=== PATIENT | female | born 1990 ===

== ENCOUNTER 2017-06-10 12:18 | Emergency (ER) | payer SELFPAY ==
[2017-06-10 12:23] VITALS: RESP 18; O2SAT 100
[2017-06-10 12:57] LABS: BASO # 0.1 K/uL (0.0-0.2); EOS # 0.2 K/uL (0.0-0.7); EOS % 2.4 % (0.0-4.0); HEMOGLOBIN 13.2 g/dL (11.0-16.0); LYMPH # 2.8 K/uL (1.0-4.3); MEAN CELL VOLUME 91.6 fL (81.0-99.0); MEAN CORPUSCULAR HEMOGLOBIN 32.4 pg (27.0-31.0); MEAN CORPUSCULAR HGB CONC 35.3 g/dL (33.0-37.0); MEAN PLATELET VOLUME 8.2 fL (7.2-11.7); MONO # 0.4 K/uL (0.0-0.8); MONO % 5.1 % (0.0-10.0); NEUT # 3.6 K/uL (1.8-7.0); NEUT % 51.5 % (50.0-75.0); RBC 4.09 Mil/uL (3.80-5.20); RED CELL DISTRIBUTION WIDTH 13.3 % (11.5-14.5); WHITE BLOOD COUNT 6.9 K/uL (4.8-10.8)
--- NOTE | 2017-06-10 13:12 | C.PDOC ---
History Of Present Illness 27-year-old female, presents to the emergency department with complaints of right lower quadrant abdominal pain since this morning that is constant, and non -radiating. Denies nausea/vomiting, diarrhea, dysuria, vaginal bleeding/ discharge. Admits to several prior episodes of this pain, but doesn't know why. Time Seen by Provider: 06/10/17 12:24 Chief Complaint (Nursing): Abdominal Pain History Per: Patient History/Exam Limitations: no limitations Onset/Duration Of Symptoms: Hrs Current Symptoms Are (Timing): Still Present Past Medical History Reviewed: Historical Data, Nursing Documentation, Vital Signs Vital Signs: Last Vital Signs Temp 98.7 F 06/10/17 12:21 Pulse 73 06/10/17 12:21 Resp 18 06/10/17 12:21 BP 111/77 06/10/17 12:21 Pulse Ox 100 06/10/17 16:49 Family History: States: No Known Family Hx - Social History Hx Alcohol Use: No Hx Substance Use: No - Immunization History Hx Tetanus Toxoid Vaccination: No Hx Influenza Vaccination: No Hx Pneumococcal Vaccination: No Review Of Systems Except As Marked, All Systems Reviewed And Found Negative. Constitutional: Negative for: Fever, Chills Gastrointestinal: Positive for: Abdominal Pain. Negative for: Nausea, Vomiting , Diarrhea Genitourinary: Negative for: Dysuria, Hematuria, Vaginal Discharge, Vaginal Bleeding Musculoskeletal: Negative for: Back Pain Physical Exam - Physical Exam Appears: Well, Non-toxic, No Acute Distress Skin: Normal Color, Warm, Dry, No Rash Head: Normacephalic Eye(s): bilateral: PERRL Nose: Normal Oral Mucosa: Moist Lips: Normal Appearing Neck: Normal ROM Chest: Symmetrical Cardiovascular: Rhythm Regular, No Murmur Respiratory: Normal Breath Sounds, No Accessory Muscle Use Gastrointestinal/Abdominal: Soft, Tenderness (RLQ and periumbilical), No Guarding, No Rebound, Other ((-)murphys sign) Back: No CVA Tenderness Pelvic: Normal External Exam, Normal Speculum Exam, Normal Bimanual Exam, No Vaginal Bleeding, No Vaginal Discharge, No Cervical Motion Tenderness, No Adnexal Tenderness Extremity: Normal ROM, No Deformity, No Swelling Neurological/Psych: Oriented x3, Normal Speech ED Course And Treatment - Laboratory Results Result Diagrams: 06/10/17 12:52 06/10/17 12:52 O2 Sat by Pulse Oximetry: 100 (ra) Pulse Ox Interpretation: Normal Progress Note: Blood work, UA, Upreg, CT scan abd/pelvis ordered and reviewed. Patient continued to have right sided pain, transvaginal US ordered. Reevaluation Time: 18:10 Reassessment Condition: Improved Disposition Counseled Patient/Family Regarding: Studies Performed, Diagnosis, Need For Followup, Rx Given - Disposition Referrals: Christopher Francisco MD [Staff Provider] - [facility] [Outside] Disposition: HOME/ ROUTINE Disposition Time: 18:10 Condition: STABLE Additional Instructions: FOLLOW UP WITH FACILITY MECHANIC WITHIN 1 WEEK USE PROTONIX EVERY DAY AVOID SPICY, ACIDIC FOODS RETURN TO EMERGENCY ROOM IF SYMPTOMS WORSEN SEGUIMIENTO CON GASTROENTERLOGO DENTRO DE 1 SEMANA UTILIZA PROTONIX CADA DA EVITE ALIMENTOS CIDOS Y PICANTES REGRESE AL DORA DE EMERGENCIA SI LOS SNTOMAS EMPEORAN Prescriptions: Pantoprazole [Protonix EC Tab] 20 mg PO DAILY #30 ect Instructions: Acute Abdomen (Belly Pain), Adult (DC) Forms: [facility] (Slovenian), General Discharge Instructions Print Language: UPPER SORBIAN - Clinical Impression Clinical Impression: Abdominal pain, Nausea - Scribe Statement The provider has reviewed the documentation as recorded by the Scribe (Obed Harkins) All medical record entries made by the Scribe were at my direction and personally dictated by me. I have reviewed the chart and agree that the record accurately reflects my personal performance of the history, physical exam, medical decision making, and the department course for this patient. I have also personally directed, reviewed, and agree with the discharge instructions and disposition.
[2017-06-10 13:17] LABS: SQUAMOUS EPITHIAL < 1 /hpf (0-5); URINE BILIRUBIN NEGATIVE (NEGATIVE); URINE BLOOD 1+ (NEGATIVE); URINE CLARITY Clear (Clear); URINE COLOR Colorless (YELLOW); URINE GLUCOSE (UA) NORMAL (Normal); URINE LEUKOCYTE ESTERASE NEG Leu/uL (Negative); URINE PROTEIN NEGATIVE (NEGATIVE); URINE UROBILINOGEN NORMAL mg/dL (0.2-1.0)
[2017-06-10 13:19] LABS: CALCIUM 9.3 mg/dl (8.6-10.4); GFR AFRICAN-AMERICAN > 60; GFR NON-AFRICAN AMERICAN > 60
[2017-06-10 13:21] LABS: ALB/GLOB RATIO 1.1 (1.0-2.1); ALBUMIN 4.8 g/dL (3.5-5.0); ALT/SGPT 33 U/L (9-52); AST/SGOT 42 U/L (14-36); BLOOD UREA NITROGEN 15 mg/dL (7-17)
[2017-06-10 13:40] LABS: LIPASE 123 U/L (23-300)
[2017-06-10] MEDS ORDERED: Sodium Chloride 0.9% 1,000 ML ONE (14:10)
[2017-06-10] MEDS ORDERED: Morphine 4 MG/ML VIAL ONE (14:10)
[2017-06-10] MEDS: Sodium Chloride 0.9% 1,000 ML IV ONE (14:12)
--- NOTE | 2017-06-10 15:23 | CT ---
PROCEDURE: CT Abdomen and Pelvis without intravenous contrast HISTORY: RIGHT ABDOMINAL PAIN, R/O KIDNEY STONE COMPARISON: CT scan of the abdomen and pelvis dated 04/30/2016. TECHNIQUE: Contiguous images were obtained from the domes of the diaphragms to the upper thighs without the administration of intravenous contrast. Oral contrast was not administered. Radiation dose: Total exam DLP = 766.6 mGy-cm. This CT exam was performed using one or more of the following dose reduction techniques: Automated exposure control, adjustment of the mA and/or kV according to patient size, and/or use of iterative reconstruction technique. FINDINGS: LOWER THORAX: Unremarkable. LIVER: Unremarkable. No gross lesion or ductal dilatation. GALLBLADDER AND BILE DUCTS: Unremarkable. PANCREAS: Unremarkable. No gross lesion or ductal dilatation. SPLEEN: Unremarkable. ADRENALS: Unremarkable. No mass. KIDNEYS AND URETERS: Unremarkable. No hydronephrosis. No solid mass. VASCULATURE: Unremarkable. No aortic aneurysm. BOWEL: Unremarkable. No obstruction. No gross mural thickening. APPENDIX: Unremarkable. Normal appendix. PERITONEUM: Unremarkable. No free fluid. No free air. LYMPH NODES: Unremarkable. No enlarged lymph nodes. BLADDER: Unremarkable. REPRODUCTIVE: Unremarkable. BONES: Small probable hemangioma in T12. No acute fracture. OTHER FINDINGS: None. IMPRESSION: No urolithiasis or evidence of recently passed genitourinary calculus. Normal appendix. No acute abdominal pelvic pathology.
--- NOTE | 2017-06-10 17:36 | US ---
HISTORY: right sided pelvic pain COMPARISON: None available. TECHNIQUE: Transabdominal and transvaginal pelvic ultrasound was performed. FINDINGS: UTERUS: Measures 7.7 x 4.2 x 4.1 cm. Retroverted, normal in size and appearance. No fibroid or other mass lesion seen. ENDOMETRIUM: Measures 5.3 mm in diameter. Normal in appearance. CERVIX: No cervical abnormality identified. RIGHT OVARY: Measures 2.6 x 1.7 x 2.9 cm. No solid mass. Normal flow. LEFT OVARY: Measures 2.8 x 1.5 x 2.3 cm. No solid mass. Normal flow. FREE FLUID: No significant free fluid noted. OTHER FINDINGS: None. IMPRESSION: Normal pelvic ultrasound.
[2017-06-10 18:03] VITALS: BP 121/75; PULSE 66; TEMP 98.6
== END 2017-06-10 18:15 | disposition home or self-care (01) ==
LOC: C.ER 12:18
DX: R10.9 Unspecified abdominal pain (principal); R11.0 Nausea
CPT/HCPCS: 74176; 76830; 76856; 80053; 81001; 83690; 84703; 85025; 87086; 96361; 96374; 96375; 99284; J1885; J2270; J7040

== ENCOUNTER 2017-09-05 15:02 | Emergency (ER) | payer SELFPAY ==
[2017-09-05 15:11] VITALS: TEMP 98; O2SAT 100
[2017-09-05] MEDS ORDERED: Sodium Chloride 0.9% 1,000 ML IV STA (15:22)
[2017-09-05 15:50] LABS: BASO # 0.1 K/uL (0.0-0.2); BASO % 0.7 % (0.0-2.0); EOS # 0.1 K/uL (0.0-0.7); EOS % 1.6 % (0.0-4.0); HEMOGLOBIN 12.3 g/dL (11.0-16.0); LYMPH # 2.6 K/uL (1.0-4.3); MEAN CELL VOLUME 91.3 fL (81.0-99.0); MEAN CORPUSCULAR HEMOGLOBIN 31.6 pg (27.0-31.0); MEAN CORPUSCULAR HGB CONC 34.6 g/dL (33.0-37.0); MEAN PLATELET VOLUME 7.7 fL (7.2-11.7); MONO # 0.5 K/uL (0.0-0.8); MONO % 6.6 % (0.0-10.0); NEUT # 4.5 K/uL (1.8-7.0); NEUT % 58.1 % (50.0-75.0); RBC 3.89 Mil/uL (3.80-5.20); RED CELL DISTRIBUTION WIDTH 12.9 % (11.5-14.5); WHITE BLOOD COUNT 7.8 K/uL (4.8-10.8)
[2017-09-05 16:02] LABS: ALB/GLOB RATIO 1.1 (1.0-2.1); ALT/SGPT 12 U/L (9-52); AST/SGOT 20 U/L (14-36); BLOOD UREA NITROGEN 6 mg/dL (7-17); GFR AFRICAN-AMERICAN > 60; GFR NON-AFRICAN AMERICAN > 60
--- NOTE | 2017-09-05 16:25 | C.PDOC ---
History Of Present Illness 27 y/o female, currently 2 months , presents to the ED for 1 day of vaginal bleeding. Patient was seen at the clinic yesterday, and had blood work and an ultrasound not showing a clear IUP. Patient then noticed vaginal spotting today and came in for further evaluation. Otherwise denies any abdominal pain, nausea, vomiting, fever, or other complaints. Time Seen by Provider: 09/05/17 15:18 Chief Complaint (Nursing): Abdominal Pain History Per: Patient History/Exam Limitations: no limitations Onset/Duration Of Symptoms: Hrs Current Symptoms Are (Timing): Still Present Past Medical History Reviewed: Historical Data, Nursing Documentation, Vital Signs Vital Signs: Last Vital Signs Temp 98.0 F 09/05/17 15:07 Pulse 91 H 09/05/17 17:04 Resp 18 09/05/17 17:04 BP 111/71 09/05/17 17:04 Pulse Ox 100 09/05/17 17:39 - Medical History PMH: No Chronic Diseases Surgical History: No Surg Hx Family History: States: Unknown Family Hx - Social History Hx Alcohol Use: No Hx Substance Use: No - Immunization History Hx Tetanus Toxoid Vaccination: Yes Hx Influenza Vaccination: No Hx Pneumococcal Vaccination: No Review Of Systems Except As Marked, All Systems Reviewed And Found Negative. Constitutional: Negative for: Fever, Chills Gastrointestinal: Negative for: Nausea, Vomiting, Abdominal Pain Genitourinary: Positive for: Vaginal Bleeding Physical Exam - Physical Exam Appears: Non-toxic, No Acute Distress Skin: Normal Color, Warm, Dry Head: Atraumatic, Normacephalic Eye(s): bilateral: Normal Inspection, PERRL, EOMI Nose: Normal Oral Mucosa: Moist Neck: Normal ROM, Supple Cardiovascular: Rhythm Regular, No Murmur Respiratory: Normal Breath Sounds, No Rales, No Rhonchi, No Wheezing Gastrointestinal/Abdominal: Soft, No Tenderness, No Guarding, No Rebound Extremity: Bilateral: Atraumatic, Normal Color And Temperature, Normal ROM Pulses: Left Dorsalis Pedis: Normal, Right Dorsalis Pedis: Normal Neurological/Psych: Oriented x3, Normal Speech, Normal Motor, Normal Sensation, Other (No focal deficits) ED Course And Treatment - Laboratory Results Result Diagrams: 09/05/17 15:40 09/05/17 15:40 O2 Sat by Pulse Oximetry: 100 (RA) Pulse Ox Interpretation: Normal - CT Scan/US Pelvic US Other Rad Studies (CT/US): Read By Radiologist, Radiology Report Reviewed CT/US Interpretation: Accession No. : [id number]. Patient Name / ID : LUCIANA ISAACS / [id number]. Exam Date : 09/05/2017 15:44:50 ( Approved ) . Study Comment : Sex / Age : F / [id number]. Creator : Jan Singh MD. Dictator : Jan Singh MD. Baker Test : Intellectual Property Counsel : Jan Singh MD. Approver2 : Report Date : 09/05/2017 16:46:04. My Comment : . Pelvic ultrasound. History: Vaginal bleeding. Comparison: Ultrasound dated 04/2017. Technique: Real-time sonography was performed through the pelvis utilizing transvaginal technique. Findings: Uterus: 9.3 x 6.3 x 6.0 centimeters. Anteverted. Cervix measures 3.5 centimeters. Intrauterine gestational sac measuring 1.9 centimeters corresponding to gestational age of 6 weeks and 2 days. Yolk sac measures 3.5 millimeters. [place]-rump length measures 3.2 millimeters corresponding to a gestational age of 6 weeks and 0 days. No heart rate identified to. No free fluid the pelvic cul-de-sac. Right ovary: 3.7 x 2.5 x 2.7 centimeters. Normal flow. Left ovary: 3.2 x 1.1 x 2.8 centimeters. Normal flow. Impression: Intrauterine corresponding to a gestational age of approximately 6 weeks and 0 days by crown- rump length of 3.2 millimeters. No heart rate identified. This may represent an early intrauterine ; however, nonviable cannot entirely be excluded. Continued interval follow-up is recommended if clinically indicated. Limited 1st trimester ultrasound for viability purposes only. Continued interval followup with serial ultrasound, serial HCG levels, and gynecological consultation would be helpful if clinically indicated. Progress Note: Repeat blood work and OB/transvaginal ultrasound ordered. Patient given IV fluids and Morphine IV. On re-evaluation patient feels better, family at bedside. Patient was instructed to f/u with OBGYN and to return to repeat beta and pelvic US in 2-3 days. Patient also was instructed to return to ED immediately if she feels worse. Disposition - Disposition Disposition: HOME/ ROUTINE Disposition Time: 17:33 Condition: STABLE Additional Instructions: Follow up with PMD/OBGYN within 1-2 days. Return to ED to repeat Beta HCG and Plevic US in 3 days. Return to ED immediately if feel worse. Prescriptions: Acetaminophen with Codeine [Tylenol with Codeine #3 Tablet] 1 each PO .Q4-6 #20 tablet Instructions: Bleeding With Forms: [facility] (Algerian) Print Language: ARABIC - Clinical Impression Clinical Impression: Pelvic pain affecting , Vaginal bleeding during - PA / DRAFTER CIVIL (CAD) / Resident Statement MD/DO has reviewed & agrees with the documentation as recorded. - Scribe Statement The provider has reviewed the documentation as recorded by the Scribe (Abril Dillard) All medical record entries made by the Scribe were at my direction and personally dictated by me. I have reviewed the chart and agree that the record accurately reflects my personal performance of the history, physical exam, medical decision making, and the department course for this patient. I have also personally directed, reviewed, and agree with the discharge instructions and disposition.
--- NOTE | 2017-09-05 16:47 | US ---
Pelvic ultrasound History: Vaginal bleeding. Comparison: Ultrasound dated 09/04/2017 Technique: Real-time sonography was performed through the pelvis utilizing transvaginal technique. Findings: Uterus: 9.3 x 6.3 x 6.0 centimeters. Anteverted. Cervix measures 3.5 centimeters. Intrauterine gestational sac measuring 1.9 centimeters corresponding to gestational age of 6 weeks and 2 days. Yolk sac measures 3.5 millimeters. [place]-rump length measures 3.2 millimeters corresponding to a gestational age of 6 weeks and 0 days. No heart rate identified to. No free fluid the pelvic cul-de-sac. Right ovary: 3.7 x 2.5 x 2.7 centimeters. Normal flow. Left ovary: 3.2 x 1.1 x 2.8 centimeters. Normal flow. Impression: Intrauterine corresponding to a gestational age of approximately 6 weeks and 0 days by crown-rump length of 3.2 millimeters. No heart rate identified. This may represent an early intrauterine ; however, nonviable cannot entirely be excluded. Continued interval follow-up is recommended if clinically indicated. Limited 1st trimester ultrasound for viability purposes only. Continued interval followup with serial ultrasound, serial HCG levels, and gynecological consultation would be helpful if clinically indicated.
[2017-09-05] MEDS ORDERED: Morphine 4 MG/ML VIAL ONE (16:59)
[2017-09-05 17:05] VITALS: BP 111/71; PULSE 91; RESP 18
== END 2017-09-05 17:59 | disposition home or self-care (01) ==
LOC: C.ER 15:02
DX: O26.891 Other specified pregnancy related conditions, first trimester (principal); O20.9 Hemorrhage in early pregnancy, unspecified; Z3A.01 Less than 8 weeks gestation of pregnancy; R10.2 Pelvic and perineal pain
CPT/HCPCS: 76817; 80053; 84702; 85025; 96361; 96374; 99284; J2270; J7030

== ENCOUNTER 2017-09-07 11:30 | Emergency (ER) | payer SELFPAY ==
[2017-09-07 11:36] VITALS: RESP 18
[2017-09-07] MEDS ORDERED: Sodium Chloride 0.9% 1,000 ML IV ONE (12:09)
--- NOTE | 2017-09-07 12:15 | C.PDOC ---
History Of Present Illness 27 year old female, presents to the ER with a complaint of lower abdominal cramping and bleeding for the past 4 days. Patient was seen in the ER 2 days ago and told to return in a few days, however, she states she passed some clots and the pain increased this morning which prompted visit. Patient has been taking tylenol with no relief. Denies fever, nausea, or vomiting. Time Seen by Provider: 09/07/17 11:44 Chief Complaint (Nursing): Abdominal Pain History Per: Patient History/Exam Limitations: no limitations Onset/Duration Of Symptoms: Days Current Symptoms Are (Timing): Still Present Location Of Pain/Discomfort: Suprapubic Radiation Of Pain To:: None Quality Of Discomfort: Cramping Associated Symptoms: denies: Fever, Nausea, Vomiting Exacerbating Factors: None Alleviating Factors: None Recent travel outside of the [place]: No Abnormal Vaginal Bleeding: Yes : 3 Para: 2 Past Medical History Reviewed: Historical Data, Nursing Documentation, Vital Signs Vital Signs: Last Vital Signs Temp 98 F 09/07/17 14:39 Pulse 78 09/07/17 14:39 Resp 18 09/07/17 14:39 BP 126/74 09/07/17 14:39 Pulse Ox 100 09/07/17 16:13 Family History: States: Unknown Family Hx - Social History Hx Alcohol Use: No Hx Substance Use: No - Immunization History Hx Tetanus Toxoid Vaccination: Yes Hx Influenza Vaccination: No Hx Pneumococcal Vaccination: No Review Of Systems Constitutional: Negative for: Fever Cardiovascular: Negative for: Light Headedness Gastrointestinal: Positive for: Abdominal Pain. Negative for: Nausea, Vomiting Genitourinary: Positive for: Vaginal Bleeding Physical Exam - Physical Exam Appears: Non-toxic Skin: Normal Color, Warm, Dry Head: Atraumatic, Normacephalic Eye(s): bilateral: Normal Inspection Oral Mucosa: Moist Chest: Symmetrical, No Tenderness Cardiovascular: Rhythm Regular Respiratory: Normal Breath Sounds, No Rales, No Rhonchi, No Wheezing Gastrointestinal/Abdominal: Soft, Tenderness (Suprapubic), No Guarding, No Rebound Extremity: Normal ROM Neurological/Psych: Oriented x3, Normal Speech ED Course And Treatment - Laboratory Results Result Diagrams: 09/07/17 12:22 09/07/17 12:22 O2 Sat by Pulse Oximetry: 100 (Room air) Pulse Ox Interpretation: Normal - CT Scan/US Transvaginal US Other Rad Studies (CT/US): Read By Radiologist, Radiology Report Reviewed CT/US Interpretation: Pelvic ultrasound. History: . Bleeding. Comparison: Pelvic ultrasound dated 09/05/2017. Technique: Real-time sonography was performed through the pelvis. Findings: Uterus: 8.3 x 4.3 x 6.7 centimeters. Heterogeneous echotexture. Retroverted. Cervix measures 3.2 centimeters. Intrauterine gestational sac measuring 1.95 centimeters corresponding to a gestational age of 6 weeks and 3 days. Yolk sac measures 2.3 millimeters. [place]-rump length measures 2.9 millimeters corresponding to a gestational age of 5 weeks 6 days. No heart rate identified. Hypoechoic foci suggestive for a small amount of subchorionic hemorrhage inferior to the gestational sac measuring 1.7 x 0.6 x 0.5 centimeters. Right ovary: 2.3 x 2.2 x 2.2 centimeters. Normal flow. Heterogeneous corpus luteal cyst measuring 1.4 x 1.4 x 1.5 centimeters. Left ovary: 2.5 x 1.9 x 2.3 centimeters. Normal flow. LMP of 07/02/2017. Estimated gestational age by LMP of 9 weeks and 4 days. Impression: Intrauterine corresponding to a gestational age of approximately 5 weeks 6 days by crown-rump length of 2.9 millimeters. No heart rate identified. Suggestion of a small amount of subchorionic hemorrhage inferior to the gestational sac measuring up to 1.7 centimeters. Suggestion of a complex and/or right sided corpus luteal cyst measuring up to 1.5 centimeters. This may represent an early intrauterine ; however, nonviable cannot entirely be excluded. Continued interval follow-up is recommended if clinically indicated. Limited 1st trimester ultrasound for viability purposes only. Continued interval followup with serial ultrasound, serial HCG levels, and gynecological consultation would be helpful if clinically indicated. Medical Decision Making Medical Decision Making: Impression: 27 year old female with abdominal pain and vaginal bleeding. Plan: * Blood work * Transvaginal US * Morphine * IV fluids Transvaginal US Impression: Intrauterine corresponding to a gestational age of approximately 5 weeks 6 days by crown-rump length of 2.9 millimeters. No heart rate identified. Suggestion of a small amount of subchorionic hemorrhage inferior to the gestational sac measuring up to 1.7 centimeters. Suggestion of a complex and/or right sided corpus luteal cyst measuring up to 1.5 centimeters. This may represent an early intrauterine ; however, nonviable cannot entirely be excluded. Continued interval follow-up is recommended if clinically indicated. Limited 1st trimester ultrasound for viability purposes only. Continued interval followup with serial ultrasound, serial HCG levels, and gynecological consultation would be helpful if clinically indicated. Labs reviewed, no acute changes. BHCG is trending up. Explained results of labs and Ultrasound. Advised patient on prognosis and likelyhood of without heart rate on US, but needs further evaluation. Recommend follow up ultrasound and BHCG in 4-7 days. Disposition Counseled Patient/Family Regarding: Diagnosis, Need For Followup - Disposition [facility] Disposition: HOME/ ROUTINE Disposition Time: 14:30 Condition: STABLE Additional Instructions: Follow up with licensed clinical psychologist or return to hospital in one week for repeat bloodwork and ultrasound [place] medicamento para el dolor segn sea necesario Es importante que anthony un seguimiento en la clnica y jin al [address] pl stico... Instructions: Threatened Miscarriage (DC) Forms: [facility] (Indonesian) Print Language: GERMAN - POA Present On Arrival: None - Clinical Impression Clinical Impression: Threatened miscarriage - PA / HOUSE OFFICER / Resident Statement MD/DO has reviewed & agrees with the documentation as recorded. - Scribe Statement The provider has reviewed the documentation as recorded by the Scribe Mike Justice All medical record entries made by the Scribe were at my direction and personally dictated by me. I have reviewed the chart and agree that the record accurately reflects my personal performance of the history, physical exam, medical decision making, and the department course for this patient. I have also personally directed, reviewed, and agree with the discharge instructions and disposition.
--- NOTE | 2017-09-07 12:16 | C.PDOC ---
Time Seen by Provider: 09/07/17 11:44 Chief Complaint (Nursing): Abdominal Pain Past Medical History Vital Signs: Last Vital Signs Temp 98.7 F 09/07/17 11:34 Pulse 74 09/07/17 11:34 Resp 18 09/07/17 11:34 BP 108/62 09/07/17 11:34 Pulse Ox 100 09/07/17 11:34 Family History: States: Unknown Family Hx - Social History Hx Alcohol Use: No Hx Substance Use: No - Immunization History Hx Tetanus Toxoid Vaccination: Yes Hx Influenza Vaccination: No Hx Pneumococcal Vaccination: No ED Course And Treatment O2 Sat by Pulse Oximetry: 100 Disposition - Disposition Forms: [facility] (Amharic)
[2017-09-07] MEDS ORDERED: Sodium Chloride 0.9% 1,000 ML ONE (12:20)
[2017-09-07 12:27] LABS: BASO # 0.1 K/uL (0.0-0.2); BASO % 0.8 % (0.0-2.0); EOS # 0.2 K/uL (0.0-0.7); HEMOGLOBIN 12.6 g/dL (11.0-16.0); LYMPH # 2.4 K/uL (1.0-4.3); LYMPH % 29.5 % (20.0-40.0); MEAN CELL VOLUME 90.7 fL (81.0-99.0); MEAN CORPUSCULAR HEMOGLOBIN 31.6 pg (27.0-31.0); MEAN CORPUSCULAR HGB CONC 34.8 g/dL (33.0-37.0); MEAN PLATELET VOLUME 7.8 fL (7.2-11.7); MONO # 0.5 K/uL (0.0-0.8); MONO % 6.3 % (0.0-10.0); NEUT % 61.4 % (50.0-75.0); WHITE BLOOD COUNT 8.2 K/uL (4.8-10.8)
[2017-09-07 12:41] LABS: BLOOD UREA NITROGEN 8 mg/dL (7-17); CALCIUM 9.2 mg/dl (8.6-10.4); GFR AFRICAN-AMERICAN > 60; GFR NON-AFRICAN AMERICAN > 60
--- NOTE | 2017-09-07 14:19 | US ---
Pelvic ultrasound History: . Bleeding. Comparison: Pelvic ultrasound dated 09/05/2017 Technique: Real-time sonography was performed through the pelvis. Findings: Uterus: 8.3 x 4.3 x 6.7 centimeters. Heterogeneous echotexture. Retroverted. Cervix measures 3.2 centimeters. Intrauterine gestational sac measuring 1.95 centimeters corresponding to a gestational age of 6 weeks and 3 days. Yolk sac measures 2.3 millimeters. [place]-rump length measures 2.9 millimeters corresponding to a gestational age of 5 weeks 6 days. No heart rate identified. Hypoechoic foci suggestive for a small amount of subchorionic hemorrhage inferior to the gestational sac measuring 1.7 x 0.6 x 0.5 centimeters. Right ovary: 2.3 x 2.2 x 2.2 centimeters. Normal flow. Heterogeneous corpus luteal cyst measuring 1.4 x 1.4 x 1.5 centimeters. Left ovary: 2.5 x 1.9 x 2.3 centimeters. Normal flow. LMP of 07/02/2017. Estimated gestational age by LMP of 9 weeks and 4 days. Impression: Intrauterine corresponding to a gestational age of approximately 5 weeks 6 days by crown-rump length of 2.9 millimeters. No heart rate identified. Suggestion of a small amount of subchorionic hemorrhage inferior to the gestational sac measuring up to 1.7 centimeters. Suggestion of a complex and/or right sided corpus luteal cyst measuring up to 1.5 centimeters. This may represent an early intrauterine ; however, nonviable cannot entirely be excluded. Continued interval follow-up is recommended if clinically indicated. Limited 1st trimester ultrasound for viability purposes only. Continued interval followup with serial ultrasound, serial HCG levels, and gynecological consultation would be helpful if clinically indicated.
[2017-09-07 14:39] VITALS: BP 126/74; PULSE 78; TEMP 98
[2017-09-07 16:14] VITALS: O2SAT 100
== END 2017-09-07 14:39 | disposition home or self-care (01) ==
LOC: C.ER 11:30
DX: O20.0 Threatened abortion (principal); Z3A.01 Less than 8 weeks gestation of pregnancy
CPT/HCPCS: 76817; 80048; 84702; 85025; 96374; 99285; J2270; J7030

== ENCOUNTER 2017-09-25 15:30 | Emergency (ER) | payer OTHER, SELFPAY ==
[2017-09-25 17:10] LABS: HCG,QUALITATIVE URINE POSITIVE (NEGATIVE); SQUAMOUS EPITHIAL 1 /hpf (0-5); URINE BILIRUBIN NEGATIVE (NEGATIVE); URINE BLOOD 3+ (NEGATIVE); URINE CLARITY Clear (Clear); URINE COLOR Yellow (YELLOW); URINE GLUCOSE (UA) NORMAL (Normal); URINE LEUKOCYTE ESTERASE NEG Leu/uL (Negative); URINE PROTEIN NEGATIVE (NEGATIVE); URINE UROBILINOGEN NORMAL mg/dL (0.2-1.0)
[2017-09-25 17:31] LABS: BASO % 0.5 % (0.0-2.0); EOS # 0.2 K/uL (0.0-0.7); EOS % 2.5 % (0.0-4.0); HEMOGLOBIN 12.2 g/dL (11.0-16.0); LYMPH # 2.9 K/uL (1.0-4.3); LYMPH % 33.2 % (20.0-40.0); MEAN CELL VOLUME 90.6 fL (81.0-99.0); MEAN CORPUSCULAR HEMOGLOBIN 30.8 pg (27.0-31.0); MEAN CORPUSCULAR HGB CONC 33.9 g/dL (33.0-37.0); MEAN PLATELET VOLUME 7.5 fL (7.2-11.7); MONO # 0.6 K/uL (0.0-0.8); MONO % 6.7 % (0.0-10.0); NEUT % 57.1 % (50.0-75.0); NRBC % 0.1 % (0.0-2.0); RBC 3.97 Mil/uL (3.80-5.20); RED CELL DISTRIBUTION WIDTH 12.8 % (11.5-14.5); WHITE BLOOD COUNT 8.8 K/uL (4.8-10.8)
--- NOTE | 2017-09-25 17:31 | C.PDOC ---
History Of Present Illness 27 y/o F p/w vaginal bleeding in . Reports lower abdominal cramping pain, severe associated with bleeding with clots since yesterday, has used 4 pads thus far. Patient has had multiple evaluations for bleeding in and was informed that she had demise and to expect a miscarriage. She was seen at [facility] today and she was referred to the ED for bleeding, severe pain, fever, chills. Time Seen by Provider: 09/25/17 16:21 Chief Complaint (Nursing): Female Genitourinary Past Medical History Vital Signs: Last Vital Signs Temp 98.1 F 09/25/17 18:30 Pulse 83 09/25/17 18:30 Resp 18 09/25/17 18:30 BP 117/66 09/25/17 18:30 Pulse Ox 99 09/25/17 18:30 Family History: States: Unknown Family Hx - Social History Hx Alcohol Use: No Hx Substance Use: No - Immunization History Hx Tetanus Toxoid Vaccination: Yes Hx Influenza Vaccination: No Hx Pneumococcal Vaccination: No Review Of Systems Except As Marked, All Systems Reviewed And Found Negative. Cardiovascular: Negative for: Chest Pain Respiratory: Negative for: Shortness of Breath Physical Exam - Physical Exam Additional Physical Exam Comments: Constitutional: No acute distress. Head: Normocephalic. Atraumatic. Eyes: PERRL. ENT: Moist mucous membranes. Neck: Supple. Cardiovascular: Regular rate. Radial pulse 2+ bilaterally. Chest: No tenderness. Respiratory: Clear to auscultation bilaterally. GI: Lower abdominal tenderness. Back: No CVA tenderness. Musculoskeletal: No tenderness or swelling of extremities. Skin: No rash. Neurologic: Alert, no focal deficit. ED Course And Treatment - Laboratory Results Result Diagrams: 09/25/17 17:29 09/25/17 17:29 O2 Sat by Pulse Oximetry: 100 Medical Decision Making Medical Decision Making: Morphine for pain, check Hb. Discussed case with Dr. Almonte, recommends Methergan TID x 3 days, f/u OBGYN afterwards or return here, return immediately for significant bleeding. Disposition - Disposition Referrals: [facility] [Outside] Disposition: HOME/ ROUTINE Disposition Time: 18:55 Condition: STABLE Prescriptions: Methylergonovine [Methergine] 1 tab PO TID #9 tab oxyCODONE/Acetaminophen [Percocet 5/325 mg Tab] 1 - 2 tab PO Q4H #24 tab Instructions: Miscarriage Forms: [employer] [facility] (Amharic) - Clinical Impression Clinical Impression: Vaginal bleeding during
[2017-09-25 17:48] LABS: ALB/GLOB RATIO 1.2 (1.0-2.1); ALBUMIN 4.4 g/dL (3.5-5.0); ALT/SGPT 24 U/L (9-52); AST/SGOT 23 U/L (14-36); BLOOD UREA NITROGEN 7 mg/dL (7-17); CALCIUM 9.4 mg/dl (8.6-10.4); GFR AFRICAN-AMERICAN > 60; GFR NON-AFRICAN AMERICAN > 60
[2017-09-25 18:31] VITALS: BP 117/66; PULSE 83; RESP 18; TEMP 98.1
--- NOTE | 2017-09-25 18:39 | US ---
PROCEDURE: OB Pelvic Ultrasound HISTORY: vaginal bleeding, pain in LMP: 07/02/2017 COMPARISON: None available. FINDINGS: UTERUS: Gestational sac: Single intrauterine gestation. Measures 1.8 cm compatible with estimated gestational age of 6 weeks, 1 day. Yolk sac: Measures 0.1 cm. Pole: [place] rump length measures 0.3 cm compatible with estimated gestational age of 5 weeks, 6 days. Heart rate: Not yet identified. age (Ultrasound estimated): 6 weeks, 0 days. Rachael-gestational hemorrhage: Small subchorionic hemorrhage measuring 0.6 x 0.7 x 0.4 cm. Date of delivery (Ultrasound estimated) : 05/21/2018 Uterus measures 9.9 x 5.5 x 6.6 cm. Retroverted. Normal in size and appearance. CERVIX: Measures 2.7 cm. Long and closed. No cervical abnormality seen. RIGHT OVARY: Measures 2.6 x 2.2 x 2.1 cm. No mass lesion. Normal flow. LEFT OVARY: Measures 1.9 x 1.2 x 1.6 cm. No solid mass. Normal flow. FREE FLUID: None. OTHER FINDINGS: None. IMPRESSION: Single intrauterine gestation with average ultrasound age of 6 weeks, 0 days. A pole is identified, but heart rate is not yet detected. Findings may represent early normal/abnormal . Close clinical follow-up with serial pelvic sonography and serial beta-hCG levels is recommended. Small subchorionic hemorrhage.
[2017-09-25 18:57] VITALS: O2SAT 100
== END 2017-09-25 19:08 | disposition home or self-care (01) ==
LOC: C.ER 15:30
DX: O20.9 Hemorrhage in early pregnancy, unspecified (principal); Z3A.01 Less than 8 weeks gestation of pregnancy
CPT/HCPCS: 76805; 76817; 80053; 81001; 84702; 84703; 85025; 86850; 86900; 87086; 96374; 99284; J2270